=== PATIENT | female | born 1975 | race Two or more races ===

== ENCOUNTER 2018-12-17 08:21 | Outpatient (CLI) | payer OTHER | END 2018-12-17 08:34 | disposition home or self-care (01) | LOC: MAMO-SONO 08:21 | DX: N64.89 Other specified disorders of breast (principal) ==

== ENCOUNTER 2018-12-30 09:26 | Outpatient (CLI) | payer OTHER | END 2018-12-30 09:34 | disposition home or self-care (01) | LOC: RAD 09:26 | DX: Q44.6 Cystic disease of liver (principal) ==

== ENCOUNTER 2020-07-28 08:54 | Outpatient (CLI) | payer OTHER | END 2020-07-28 09:12 | disposition home or self-care (01) | LOC: MAMO-SONO 08:54 | DX: N60.01 Solitary cyst of right breast (principal); N60.02 Solitary cyst of left breast; D25.2 Subserosal leiomyoma of uterus ==

== ENCOUNTER 2021-07-11 13:28 | Outpatient (CLI) | payer OTHER | END 2021-07-11 13:39 | disposition home or self-care (01) | LOC: SONOGRAMA 13:28 | PROVIDERS: ATTEND Internal Medicine Hematology & Oncology | DX: N92.0 Excessive and frequent menstruation with regular cycle (principal) ==

== ENCOUNTER → 2022-06-29 | Outpatient (CLI) | payer OTHER | END | disposition home or self-care (01) | LOC: MAMO-SONO 07:58 | DX: N60.01 Solitary cyst of right breast (principal); N60.02 Solitary cyst of left breast ==

== ENCOUNTER 2024-12-04 09:07 | Outpatient (CLI) | payer OTHER | END 2024-12-04 09:13 | disposition home or self-care (01) | LOC: MAMO-SONO 09:07 | PROVIDERS: ATTEND Specialist | DX: N60.01 Solitary cyst of right breast (principal); N60.02 Solitary cyst of left breast; Z12.31 Encounter for screening mammogram for malignant neoplasm of breast ==